=== PATIENT | male | born 1980 | race African-American/Black ===

== ENCOUNTER → 2020-02-22 | Emergency (ER) | payer MEDICAID, OTHER ==
[~2020-02-22] VITALS: Ht 180.3 cm; Wt 90.7 kg
[~2020-02-22] MED LIST: ACETAMINOPHEN 500 MG TAB PO ONE; IBUPROFEN 800 MG TAB PO ONE
[2020-02-22 22:15] VITALS: BP 131/83
== END | disposition home or self-care (01) ==
LOC: ER 21:48
DX: S82.441A Displaced spiral fracture of shaft of right fibula, initial encounter for closed fracture (principal); V87.8XXA Person injured in other specified noncollision transport accidents involving motor vehicle (traffic), initial encounter; Y93.55 Activity, bike riding; Y92.410 Unspecified street and highway as the place of occurrence of the external cause; Y99.8 Other external cause status
CPT/HCPCS: 29515; 73610

== ENCOUNTER 2022-04-09 03:12 | Emergency (ER) | payer MEDICAID ==
[~2022-04-09] VITALS: Ht 180.3 cm; Wt 94.0 kg
[2022-04-09 03:20] VITALS: BP 131/93
[2022-04-09 04:34] LABS: Urine Bacteria NONE SEEN /hpf (None Seen); Urine Blood TRACE /uL (Negative); Urine Mucus FEW (None Seen); Urine Specific Gravity 1.031 (1.001-1.035); Urine WBC 4 /hpf (0 - 3)
[2022-04-09] MEDS ORDERED: OXYCODONE W/ ACETAMINOPHEN 5/325MG TABLET PO ONE (06:45)
[2022-04-09] MEDS ORDERED: ONDANSETRON ODT 4 MG TAB PO ONE (06:45)
[2022-04-09] MEDS ORDERED: PERCOT PO ×2 (06:50→06:51)
[2022-04-09] MEDS ORDERED: ONDA-144 PO ×2 (06:50)
== END 2022-04-09 06:58 | disposition home or self-care (01) ==
LOC: ER 03:12
DX: M54.50 Low back pain, unspecified (principal)
CPT/HCPCS: 74176; 81001; 99284; Q0162